=== PATIENT | male | born 1980 | race Caucasian/White ===

== ENCOUNTER 2019-02-06 13:43 | Inpatient (IN) | payer OTHER ==
[2019-02-06 15:12] VITALS: BMI 35.8
--- NOTE | 2019-02-06 16:53 | HP ---
CIWA Score Nausea/Vomitin Muscle Tremors: 4-Moderate,w/Arms Extend Anxiety: 4-Mod. Anxious/Guarded Agitation: 6 Paroxysmal Sweats: 1-Minimal Palms Moist Orientation: 1-Uncertain about Date Tacttile Disturbances: 2-Mild Itch/Numbness/Burn Auditory Disturbances: 0-None Visual Disturbances: 0-None Headache: 0-None Present CIWA-Ar Total Score: 20 - Admission Criteria OASAS Guidelines: Admission for Medically Managed Detox: Requires at least one of the followin. CIWA greater than 12 2. Seizures within the past 24 hours 3. Delirium tremens within the past 24 hours 4. Hallucinations within the past 24 hours 5. Acute intervention needed for co occurring medical disorder 6. Acute intervention needed for co occurring psychiatric disorder 7. Severe withdrawal that cannot be handled at a lower level of care (continued vomiting, continued diarrhea, abnormal vital signs) requiring intravenous medication and/or fluids 8. Admission ROS S - HPI Allergies/Adverse Reactions: Allergies Allergy/AdvReac Type Severity Reaction Status Date / Time No Known Allergies Allergy Verified 02/06/19 14:57 History of Present Illness: pt here requesting detox from etoh use , reports 10 shots vodka daily x 2 years , current BISI 0.292 , + falls while intoxicated, vth finger frx playing football, + blackouts , + seizure in childhood. pmhx : HTN , hep A tx , HLD , pshx : gastric bypass 2011 , right quad reattachment 2012 denies illicits fhx :F HTN , HLD Exam Limitations: Clinical Condition, Intoxication - Ebola screening Have you traveled outside of the country in the last 21 days: No Have you had contact with anyone from an Ebola affected area: No Do you have a fever: No - Review of Systems Constitutional: See HPI EENT: reports: No Symptoms Reported Respiratory: reports: No Symptoms reported Cardiac: reports: No Symptoms Reported GI: reports: See HPI, Diarrhea : reports: No Symptoms Reported Musculoskeletal: reports: No Symptoms Reported Integumentary: reports: No Symptoms Reported Neuro: reports: No Symptoms reported Endocrine: reports: No Symptoms Reported Psychiatric: reports: Orientated x3, Agitated Patient History - Smoking Cessation Smoking history: Unknown if ever smoked - Substances abused Alcohol Substance route: Oral Frequency: Daily Amount used: (10) 30ml shots of vodka Age of first use: 18 Date of last use: 02/05/19 Admission Physical Exam [facility] - Vital Signs Vital Signs: Vital Signs - 24 hr 02/06/19 02/06/19 14:50 15:51 Temperature 97.9 F 97.9 F Pulse Rate 113 H 113 H Respiratory 20 20 Rate Blood Pressure 164/102 H 164/102 H - Physical General Appearance: Yes: Moderate Distress, Alcohol on Breath, Intoxicated, Anxious HEENTM: Yes: EOMI, Hearing grossly Normal, Normocephalic, Normal Voice Respiratory: Yes: Chest Non-Tender, Lungs Clear, Normal Breath Sounds, No Respiratory Distress, No Accessory Muscle Use Neck: Yes: No masses,lesions,Nodules, Trachea in good position Cardiology: Yes: Regular Rate, S1, S2, Tachycardia Abdominal: Yes: Non Tender, Soft, Protuberent Back: Yes: Normal Inspection Musculoskeletal: Yes: Gait Steady Extremities: Yes: Normal Range of Motion, Other (vth left PIP deformity ( old frx )) Neurological: Yes: Motor Strength 5/5 Integumentary: Yes: Warm - Diagnostic (1) Alcohol intoxication Current Visit: Yes Status: Acute Qualifiers: Complication of substance-induced condition: uncomplicated Qualified Code(s ): F10.920 - Alcohol use, unspecified with intoxication, uncomplicated (2) Nicotine dependence Current Visit: Yes Status: Chronic Qualifiers: Nicotine product type: cigarettes Breathalyzer - Breathalyzer Breathalyzer: 0.292 Urine Drug Screen - Test Device Lot number: [id number] Expiration date: 10/08/20 - Control Is test valid?: Yes - Results Drug screen NEGATIVE: Yes Inpatient Rehab Admission - Rehab Decision to Admit Inpatient rehab admission?: No
[2019-02-06] MEDS ORDERED: MAGNESIUM CITRATE 300 ML BOTTLE PO PRN (16:58)
[2019-02-06] MEDS ORDERED: IBUPROFEN 400 MG TABLET (FP) PO PRN (16:58)
[2019-02-06] MEDS ORDERED: MAGNESIUM HYDROX 2400MG/30ML ORAL SUSPENSION 30 ML CUP PO PRN (16:58)
[2019-02-06] MEDS ORDERED: BISMUTH SUBSALICYLATE 524 MG/30 ML UD PO PRN (16:58)
[2019-02-06] MEDS ORDERED: ACETAMINOPHEN 325 MG TABLET (FP) PO PRN ×2 (16:58)
[2019-02-06] MEDS ORDERED: chlordiazePOXIDE HCL 25 MG CAPSULE PO PRN (16:58)
[2019-02-06] MEDS ORDERED: MAG HYDROX/AL HYDROX/SIMETH 30 ML UNIT-DOSE CUP PO PRN (16:58)
[2019-02-06] MEDS ORDERED: MELATONIN 5 MG TABLETS PO PRN (16:58)
[2019-02-06] MEDS ORDERED: MENTHOL/PHENOL 1 EACH UD MM PRN (16:58)
[2019-02-06] MEDS ORDERED: NICOTINE POLACRILEX 2 MG GUM BUC PRN (16:58)
[2019-02-06] MEDS ORDERED: hydrOXYzine PAMOATE 25 MG CAPSULE (FP) PO PRN (16:58)
[2019-02-06] MEDS ORDERED: chlordiazePOXIDE HCL 25 MG CAPSULE PO SCH (17:00)
[2019-02-06] MEDS ORDERED: THIAMINE HCL 100 MG TABLET (FP) PO SCH (22:00)
[2019-02-06] MEDS: LORazepam 2 MG TABLET PO SCH (22:12)
[2019-02-06] MEDS: LORazepam 1 MG TABLET PO PRN (23:47)
[2019-02-07] MEDS ORDERED: cloNIDine HCL 0.1 MG TABLET PO ONE (03:14)
[2019-02-07] MEDS ORDERED: hydrOXYzine PAMOATE 50 MG CAPSULE (FP) PO ONE (03:19)
--- NOTE | 2019-02-07 03:35 | PN ---
S CIWA - CIWA Score Nausea/Vomitin-No Nausea/No Vomiting Muscle Tremors: 5 Anxiety: 5 Agitation: 4-Moderately Restless Paroxysmal Sweats: 3 Orientation: 1-Uncertain about Date Tacttile Disturbances: 0-None Auditory Disturbances: 0-None Visual Disturbances: 2-Mild Sensitivity Headache: 0-None Present CIWA-Ar Total Score: 20 BHS Progress Note (SOAP) Subjective: shakes, sweats, restlesness, interrupted sleep. denies sob, c.p, n/v/d, dizziness, avh Objective: 02/07/19 03:33 a/o x3 very anxious pacing on unit extremities - gross tremors cv tachy skin- flushed moist Vital Signs Temperature 97.5 F L 02/07/19 03:04 Pulse Rate 114 H 02/07/19 03:04 Respiratory Rate 22 H 02/07/19 03:04 Blood Pressure 171/101 H 02/07/19 03:04 O2 Sat by Pulse Oximetry (%) Assessment: 02/07/19 03:34 alcohol withdrawal Plan: vistaril 50 mg now clonidine 0.2 mg now cont to monitor closey for worsing withdrawal sx
[2019-02-07] MEDS: LORazepam 2 MG TABLET PO SCH (05:27)
[2019-02-07] MEDS: LORazepam 1 MG TABLET PO PRN (09:36)
--- NOTE | 2019-02-07 09:36 | DS ---
[facility] Detox Discharge Summary Admission Date: 02/06/19 Discharge Date: 02/07/19 - History Present History: Alcohol Dependence Pertinent Past History: Pt insisting on being discharged this morning. Says he talked to his mom who will pick him up. Pt states he is bored here, wants to go to a facility where he can wear his hat , where he can have visitors. says he is bored here with nothing to do all day. - Physical Exam Results Vital Signs: Vital Signs Temperature 98.2 F 02/07/19 06:00 Pulse Rate 96 H 02/07/19 06:10 Respiratory Rate 18 02/07/19 06:10 Blood Pressure 151/82 02/07/19 06:10 O2 Sat by Pulse Oximetry (%) Pertinent Admission Physical Exam Findings: Vital Signs - 24 hr 02/06/19 02/06/19 02/06/19 14:50 15:51 17:35 Temperature 97.9 F 97.9 F 98.0 F Pulse Rate 113 H 113 H 113 H Respiratory 20 20 18 Rate Blood Pressure 164/102 H 164/102 H 135/93 02/06/19 02/06/19 02/07/19 18:13 20:42 03:04 Temperature 97.9 F 97.6 F 97.5 F L Pulse Rate 116 H 115 H 114 H Respiratory 18 20 22 H Rate Blood Pressure 154/93 148/87 171/101 H 02/07/19 02/07/19 06:00 06:10 Temperature 98.2 F Pulse Rate 105 H 96 H Respiratory 22 H 18 Rate Blood Pressure 161/89 151/82 Pt is in withdrawal with a CIWA score of about 15: tremulous, agitated, restless , shaking. Denies hallucinations. d/w pt at length about the risks of discharge at this time. Pt is insistent on leaving- pt talked to counselor. Pt talked to his mother by phone. Rec'd a dose of Ativan. Pt states he will go to his "favorite" hospital [facility] after he leaves here. - Medication Discharge Medications: Ambulatory Orders Amlodipine Besylate [Norvasc -] 10 mg PO DAILY 02/06/19 Gabapentin [Neurontin -] 300 mg PO DAILY 02/06/19 Gabapentin [Neurontin] 600 mg PO HS 02/06/19
[2019-02-07 09:51] VITALS: BP 155/97; PULSE 121; TEMP 98.6
[2019-02-07] MEDS ORDERED: PRENATAL VITAMINS W/ FOLIC ACID TABLET (FP) PO SCH (10:00)
[2019-02-07 10:58] LABS: ALBUMIN 3.8 g/dl (3.4-5.0); BLOOD UREA NITROGEN 10.5 mg/dL (7-18); CREATININE 0.8 mg/dL (0.55-1.3); TOT PROT 7.3 g/dl (6.4-8.2)
[2019-02-07 11:01] LABS: HEMATOCRIT 40.7 % (35.4-49); HEMOGLOBIN 13.7 GM/dL (11.7-16.9); MCHC 33.8 g/dl (32.0-35.9); MEAN CELL VOLUME 91.8 fl (80-96); MEAN PLT VOLUME 8.2 fl (7.5-11.1); PLATELET COUNT 83 K/MM3 (134-434); RBC 4.43 M/mm3 (4.00-5.60); RDW 13.8 % (11.9-15.9); WHITE BLOOD COUNT 2.9 K/mm3 (4.0-10.0)
[2019-02-07 12:30] LABS: POTASSIUM 2.9 mmol/L (3.5-5.1)
--- NOTE | 2019-02-07 14:00 | PN ---
S Progress Note Note: Pt left before potassium results were back. Pt had indicated that he was going to [facility] to continue detox. Called and talked to pts mother who said pt was at [facility] and had blood work done there in the ER.
[2019-02-08] MEDS ORDERED: LORazepam 1 MG TABLET PO SCH (05:00)
[2019-02-08] MEDS ORDERED: chlordiazePOXIDE HCL 25 MG CAPSULE PO SCH (05:00)
[2019-02-09] MEDS ORDERED: LORazepam 0.5 MG TABLET PO PRN
[2019-02-09] MEDS ORDERED: chlordiazePOXIDE HCL 10 MG CAPSULE PO PRN
[2019-02-09] MEDS ORDERED: LORazepam 0.5 MG TABLET PO SCH (05:00)
[2019-02-09] MEDS ORDERED: chlordiazePOXIDE HCL 10 MG CAPSULE PO SCH (05:00)
[2019-02-10] MEDS ORDERED: LORazepam 0.5 MG TABLET PO ONE (05:00)
[2019-02-10] MEDS ORDERED: chlordiazePOXIDE HCL 10 MG CAPSULE PO SCH (05:00)
[2019-02-11] MEDS ORDERED: chlordiazePOXIDE HCL 10 MG CAPSULE PO ONE (05:00)
== END 2019-02-07 10:24 | disposition left against medical advice (07) | DRG 770 ==
LOC: YASAS 13:43 → Y6N 17:39
PROVIDERS: ADMIT Allergy & Immunology; ATTEND Allergy & Immunology
PROC: HZ2ZZZZ Detoxification Services for Substance Abuse Treatment (ICD-10-PCS; principal; 2019-02-06)
DX: F10.230 Alcohol dependence with withdrawal, uncomplicated (principal); F10.220 Alcohol dependence with intoxication, uncomplicated; F17.210 Nicotine dependence, cigarettes, uncomplicated; I10 Essential (primary) hypertension; E78.5 Hyperlipidemia, unspecified; Z86.19 Personal history of other infectious and parasitic diseases; Z98.84 Bariatric surgery status; Z98.890 Other specified postprocedural states
CPT/HCPCS: 36415; 80053; 85027; 86593; 87389; J0735